=== PATIENT | female | born 1980 | race Caucasian/White ===

== ENCOUNTER 2016-04-18 13:19 | Inpatient (IN) | payer OTHER ==
[2016-04-18 14:51] VITALS: BMI 24.6
--- NOTE | 2016-04-18 16:23 | HP ---
CIWA Score - CIWA Score Nausea/Vomitin-Mild Nausea/No Vomiting Muscle Tremors: 5 Anxiety: 4-Mod. Anxious/Guarded Agitation: 4-Moderately Restless Paroxysmal Sweats: 1-Minimal Palms Moist Orientation: 1-Uncertain about Date Tacttile Disturbances: 0-None Auditory Disturbances: 0-None Visual Disturbances: 0-None Headache: 0-None Present CIWA-Ar Total Score: 16 Admission ROS S - HPI Chief Complaint: withdrawal sx Allergies/Adverse Reactions: Allergies Allergy/AdvReac Type Severity Reaction Status Date / Time No Known Allergies Allergy Verified 04/18/16 16:17 History of Present Illness: 35 years old female with long history of alcohol nicotine and recent xanax dependence, denies medical issue, has anxiety and depression is admitted to detox Exam Limitations: No Limitations - Ebola screening Have you traveled outside of the country in the last 21 days: No Have you had contact with anyone from an Ebola affected area: No Have you been sick,other than usual withdrawal symptoms: No Do you have a fever: No - Review of Systems Constitutional: Chills, Changes in sleep, Weight Stable EENT: reports: No Symptoms Reported Respiratory: reports: Productive cough (greenish) Cardiac: reports: Palpitations GI: reports: Nausea, Poor Fluid Intake, Abdominal cramping : reports: No Symptoms Reported Musculoskeletal: reports: Back Pain Integumentary: reports: Erythema (rosacea of face) Neuro: reports: Seizure (xanax alcohol withdrawal related 12/2015), Tremors Endocrine: reports: No Symptoms Reported Hematology: reports: No Symptoms Reported Psychiatric: reports: Judgement Intact, Agitated, Depressed Other Systems: Reviewed and Negative Patient History - Patient Medical History Hx Anemia: No Hx Asthma: No Hx Chronic Obstructive Pulmonary Disease (COPD): No Hx Cancer: No Hx Cardiac Disorders: No Hx Congestive Heart Failure: No Hx Hypertension: No Hx Hypercholesterolemia: No Hx Pacemaker: No HX Cerebrovascular Accident: No Hx Seizures: Yes (2015) Hx Dementia: No Hx Diabetes: No Hx Gastrointestinal Disorders: No Hx Liver Disease: No Hx Genitourinary Disorders: No Hx Sexually Transmitted Disorders: No Hx Renal Disease (ESRD): No Hx Thyroid Disease: No Hx Human Immunodeficiency Virus (HIV): No Hx Hepatitis C: No Hx Depression: Yes Hx Suicide Attempt: No Hx Bipolar Disorder: No Hx Schizophrenia: No - Patient Surgical History Past Surgical History: Yes Hx Neurologic Surgery: No Hx Cataract Extraction: No Hx Cardiac Surgery: No Hx Lung Surgery: No Hx Breast Surgery: No Hx Breast Biopsy: No Hx Abdominal Surgery: No Hx Appendectomy: No Hx Cholecystectomy: No Hx Genitourinary Surgery: No Hx Section: Yes Hx Orthopedic Surgery: No Hx Hysterectomy: No Anesthesia Reaction: No - PPD History Previous Implant?: Yes Documented Results: Negative w/o proof Implanted On Prior [facility] Admission?: No PPD to be Administered?: Yes - Reproductive History Patient is a Female of Child Bearing Age (11 -55 yrs old): Yes Last Menstrual Period: 04/05/16 Patient : No - Smoking Cessation Smoking history: Current every day smoker Have you smoked in the past 12 months: Yes Aproximately how many cigarettes per day: 12 Cigars Per Day: 0 Hx Chewing Tobacco Use: No Initiated information on smoking cessation: Yes 'Breaking Loose' booklet given: 04/18/16 - Substance & Tx. History Hx Alcohol Use: Yes Hx Substance Use: Yes Substance Use Type: Alcohol, Tranquilizers Hx Substance Use Treatment: Yes - Substances Abused Alcohol Route: Oral Frequency: Daily Amount used: 1-2 PINTS VODKA Age of first use: 11 Date of Last Use: 04/18/16 Alprazolam (Xanax) Route: Oral Frequency: Daily Amount used: 4-10MG Age of first use: 35 Date of Last Use: 04/18/16 Family Disease History - Family Disease History Family Disease History: Heart Disease: Father, [place]: Grandparent Admission Physical Exam BHS - Vital Signs Vital Signs: Vital Signs - 24 hr 04/18/16 14:48 Temperature 97.5 F L Pulse Rate 108 H Respiratory 20 Rate Blood Pressure 116/70 - Physical General Appearance: Yes: Appropriately Dressed, Mild Distress, Alcohol on Breath , Thin, Tremorous, Irritable, Sweating, Anxious HEENTM: Yes: Hearing grossly Normal, Normal ENT Inspection, Normocephalic, Normal Voice Respiratory: Yes: Chest Non-Tender, Lungs Clear, Normal Breath Sounds, No Respiratory Distress, No Accessory Muscle Use, Other (history of fracture left lower ribs) Neck: Yes: Supple, Trachea in good position Breast: Yes: Breasts Symetrical Cardiology: Yes: Regular Rhythm, S1, S2, Tachycardia Abdominal: Yes: Non Tender, Soft Genitourinary: Yes: Within Normal Limits Back: Yes: Normal Inspection Musculoskeletal: Yes: full range of Motion, Gait Steady, Back pain Extremities: Yes: Normal Inspection, Normal Range of Motion, Non-Tender, Tremors Neurological: Yes: Alert, Motor Strength 5/5, Normal Response, Depressed Affect Integumentary: Yes: Warm, Erythema (rosacea face), Clammy Lymphatic: Yes: Within Normal Limits - Diagnostic (1) Alcohol dependence with uncomplicated withdrawal Current Visit: Yes Status: Acute (2) Sedative, hypnotic or anxiolytic dependence with withdrawal, uncomplicated Current Visit: Yes Status: Acute (3) Rosacea, acne Current Visit: Yes Status: Acute (4) Nicotine dependence Current Visit: Yes Status: Acute Qualifiers: Nicotine product type: cigarettes Substance use status: in withdrawal Qualified Code(s): F17.213 - Nicotine dependence, cigarettes, with withdrawal (5) Anxiety and depression Current Visit: Yes Status: Suspected (6) Alcohol related seizure Current Visit: Yes Status: Chronic Cleared for Admission [facility] - Detox or Rehab [facility] Level of Care: Medically Managed Detox Regimen/Protocol: Librium [facility] Breath Alcohol Content Breath Alcohol Content: 0.125 Vital Signs - Vital Signs Vital Signs Refused: No Temperature: 97.5 F Temperature Source: Oral Pulse Rate: 108 Respiratory Rate: 20 Blood Pressure: 116/70 BP Location: Left Arm Blood Pressure Position: Sitting - Height Height: 5 ft 5 in - Weight Weight: 148 lb Weight Measurement Method: Standing Scale Body Mass Index (BMI): 24.6 - Bowel Function Bowel Movement: Yes Urine Pregancy Test - Result Urine Test Results: Negative- NO Line Present Urine Drug Screen - Control Is Test Valid: Yes - Results Drug Screen Negative: No Urine Drug Screen Results: BZO-Benzodiazepines
[2016-04-18] MEDS ORDERED: IBUPROFEN 400 MG TABLET (FP) PO PRN (16:46)
[2016-04-18] MEDS ORDERED: MAGNESIUM HYDROX 2400MG/30ML ORAL SUSPENSION 30 ML CUP PO PRN (16:46)
[2016-04-18] MEDS ORDERED: LOPERAMIDE HCL 2 MG CAPSULE PO PRN (16:46)
[2016-04-18] MEDS ORDERED: guaiFENesin/D-METHORPHAN HB 10 ML UNIT-DOSE CUPS PO PRN (16:46)
[2016-04-18] MEDS ORDERED: MAGNESIUM CITRATE 300 ML BOTTLE PO PRN (16:46)
[2016-04-18] MEDS ORDERED: MAG HYDROX/AL HYDROX/SIMETH 30 ML UNIT-DOSE CUP PO PRN (16:46)
[2016-04-18] MEDS ORDERED: MENTHOL/PHENOL 1 EACH UD MM PRN (16:46)
[2016-04-18] MEDS ORDERED: P-EPHED 60MG/TRIPROLIDI 2.5MG TABLET PO PRN (16:46)
[2016-04-18] MEDS ORDERED: diphenhydrAMINE HCL 50 MG CAPSULE PO PRN (16:46)
[2016-04-18] MEDS: chlordiazePOXIDE HCL 25 MG CAPSULE PO PRN (19:17)
[2016-04-18] MEDS: ACETAMINOPHEN 325 MG TABLET (FP) PO PRN (22:20)
[2016-04-18] MEDS: chlordiazePOXIDE HCL 25 MG CAPSULE PO SCH (22:21)
[2016-04-18] MEDS: THIAMINE HCL 100 MG TABLET (FP) PO SCH (22:21)
[2016-04-18] MEDS: GABAPENTIN 100 MG CAPSULE (FP) PO SCH (22:21)
[2016-04-18] MEDS: SPIRONOLACTONE 25 MG TABLET (FP) PO SCH (22:21)
[2016-04-18] MEDS: NICOTINE POLACRILEX 2 MG GUM BC PRN (23:16)
[2016-04-19 00:22] LABS: URINE APPEARANCE CLEAR; URINE BILIRUBIN NEGATIVE (NEGATIVE); URINE BLOOD NEGATIVE (NEGATIVE); URINE COLOR STRAW; URINE GLUCOSE (UA) NEGATIVE (NEGATIVE); URINE KETONE NEGATIVE (NEGATIVE); URINE LEUK ESTERASE NEGATIVE (NEGATIVE); URINE NITRITE NEGATIVE (NEGATIVE); URINE PROTEIN NEGATIVE (NEGATIVE); URINE UROBILINOGEN NEGATIVE E.U./dl (0.2-1.0)
[2016-04-19] MEDS: chlordiazePOXIDE HCL 25 MG CAPSULE PO SCH ×4 (05:54→22:30)
[2016-04-19] MEDS: NICOTINE POLACRILEX 2 MG GUM BC PRN ×4 (05:58→23:05)
[2016-04-19] MEDS ORDERED: [UNRECOGNIZED DRUG - OTHER] TP SCH (10:00)
[2016-04-19] MEDS ORDERED: SULFACETAMIDE SODIUM TP SCH (10:00)
[2016-04-19 10:19] LABS: ALBUMIN 3.5 g/dl (3.4-5.0); ALK PHOS 45 U/L (45-117); ANION GAP 8 (8-16); CALCIUM 8.4 mg/dL (8.5-10.1); CO2 28 mmol/L (21-32); CREATININE 0.7 mg/dL (0.55-1.02); GLUCOSE,RANDOM 71 mg/dL (74-106); SGOT/AST 22 U/L (15-37); SGPT/ALT 23 U/L (12-78); TOT PROT 6.4 g/dl (6.4-8.2)
[2016-04-19 10:23] LABS: MCH 29.1 pg (25.7-33.7); MCHC 33.3 g/dl (32.0-36.0); MEAN CELL VOLUME 87.5 fl (80-96); MEAN PLT VOLUME 9.7 fl (7.5-11.1); PLATELET COUNT 153 K/MM3 (134-434); RDW 15.5 % (11.6-15.6); WHITE BLOOD COUNT 5.5 K/mm3 (4.0-10.0)
[2016-04-19] MEDS: CICLOPIROX OLAMINE TP SCH (10:37)
[2016-04-19] MEDS: PRENATAL VITAMINS W/ FOLIC ACID TABLET (FP) PO SCH (10:37)
[2016-04-19] MEDS: SPIRONOLACTONE 25 MG TABLET (FP) PO SCH ×2 (10:38→22:30)
[2016-04-19] MEDS: GABAPENTIN 100 MG CAPSULE (FP) PO SCH ×2 (10:38→22:30)
[2016-04-19] MEDS: NICOTINE 14 MG/24 HOURS TOPICAL PATCH TD SCH (10:40)
[2016-04-19] MEDS: MINERAL OIL/PETROLAT/WATER TOPICAL CREAM 113 GM JAR TP SCH (10:41)
--- NOTE | 2016-04-19 11:12 | EKG ---
Test Reason : Blood Pressure : / mmHG Vent. Rate : 092 BPM Atrial Rate : 092 BPM P-R Int : 160 ms QRS Dur : 084 ms QT Int : 388 ms P-R-T Axes : 043 045 021 degrees QTc Int : 479 ms NORMAL SINUS RHYTHM NONSPECIFIC ST ABNORMALITY ABNORMAL ECG NO PREVIOUS ECGS AVAILABLE Confirmed by PAYAM PASCUAL MD ([id number]) on 04/19/2016 11:12:05 AM Referred By: Confirmed By:PAYAM PASCUAL MD
[2016-04-19] MEDS ORDERED: COLLOIDAL OATMEAL 1 BAR EACH TP PRN (11:21)
[2016-04-19 11:59] LABS: HIV 1 & 2 AB NEGATIVE; HIV 1 AGp24 NEGATIVE
[2016-04-19] MEDS: chlordiazePOXIDE HCL 25 MG CAPSULE PO PRN ×2 (12:59→19:05)
--- NOTE | 2016-04-19 13:32 | PN ---
S CIWA - CIWA Score Nausea/Vomitin-No Nausea/No Vomiting Muscle Tremors: 4-Moderate,w/Arms Extend Anxiety: 3 Agitation: 3 Paroxysmal Sweats: 3 Orientation: 0-Oriented Tacttile Disturbances: 2-Mild Itch/Numbness/Burn Auditory Disturbances: 0-None Visual Disturbances: 0-None Headache: 3-Moderate CIWA-Ar Total Score: 18 BHS Progress Note (SOAP) Subjective: Sweating, chills, H/A, Tremors, Diarrhea. Objective: PT. A & O X 3, OBSERVED AMBULATING ON UNIT. 04/19/16 13:32 Vital Signs Temperature 98.2 F 04/19/16 10:34 Pulse Rate 88 04/19/16 10:34 Respiratory Rate 16 04/19/16 10:34 Blood Pressure 109/70 04/19/16 10:34 O2 Sat by Pulse Oximetry (%) Laboratory Last Values WBC 5.5 K/mm3 (4.0-10.0) 04/19/16 07:00 RBC 3.96 M/mm3 (3.60-5.2) 04/19/16 07:00 Hgb 11.5 GM/dL (10.7-15.3) 04/19/16 07:00 Hct 34.6 % (32.4-45.2) 04/19/16 07:00 MCV 87.5 fl (80-96) 04/19/16 07:00 MCHC 33.3 g/dl (32.0-36.0) 04/19/16 07:00 RDW 15.5 % (11.6-15.6) 04/19/16 07:00 Plt Count 153 K/MM3 (134-434) 04/19/16 07:00 MPV 9.7 fl (7.5-11.1) 04/19/16 07:00 Sodium 138 mmol/L (136-145) 04/19/16 07:00 Potassium 4.4 mmol/L (3.5-5.1) 04/19/16 07:00 Chloride 102 mmol/L (98-107) 04/19/16 07:00 Carbon Dioxide 28 mmol/L (21-32) 04/19/16 07:00 Anion Gap 8 (8-16) 04/19/16 07:00 BUN 13 mg/dL (7-18) 04/19/16 07:00 Creatinine 0.7 mg/dL (0.55-1.02) 04/19/16 07:00 Creat Clearance w eGFR > 60 (>60) 04/19/16 07:00 Random Glucose 71 mg/dL (74-106) L 04/19/16 07:00 Calcium 8.4 mg/dL (8.5-10.1) L 04/19/16 07:00 Total Bilirubin 1.0 mg/dL (0.2-1.0) 04/19/16 07:00 AST 22 U/L (15-37) 04/19/16 07:00 ALT 23 U/L (12-78) 04/19/16 07:00 Alkaline Phosphatase 45 U/L (45-117) 04/19/16 07:00 Total Protein 6.4 g/dl (6.4-8.2) 04/19/16 07:00 Albumin 3.5 g/dl (3.4-5.0) 04/19/16 07:00 Urine Color Straw 04/19/16 00:05 Urine Appearance Clear 04/19/16 00:05 Urine pH 6.0 (5.0-8.0) 04/19/16 00:05 Ur Specific [place] 1.002 (1.001-1.035) 04/19/16 00:05 Urine Protein Negative (NEGATIVE) 04/19/16 00:05 Urine Glucose (UA) Negative (NEGATIVE) 04/19/16 00:05 Urine Ketones Negative (NEGATIVE) 04/19/16 00:05 Urine Blood Negative (NEGATIVE) 04/19/16 00:05 Urine Nitrite Negative (NEGATIVE) 04/19/16 00:05 Urine Bilirubin Negative (NEGATIVE) 04/19/16 00:05 Urine Urobilinogen Negative E.U./dl (0.2-1.0) 04/19/16 00:05 Ur Leukocyte Esterase Negative (NEGATIVE) 04/19/16 00:05 RPR Titer Nonreactive (NONREACTIVE) 04/19/16 07:00 HIV 1&2 Antibody Screen Negative 04/19/16 07:00 HIV P24 Antigen Negative 04/19/16 07:00 LABS NOTED. Assessment: 04/19/16 13:34 WITHDRAWAL SYMPTOMS. Plan: CONTINUE DETOX.
[2016-04-19] MEDS: hydrOXYzine PAMOATE 50 MG CAPSULE (FP) PO PRN ×2 (14:53→19:05)
--- NOTE | 2016-04-19 16:05 | CONSULT ---
[facility] Psychiatric Consult - Data Date of interview: 04/19/16 Admission source: [facility] Identifying data: First admission to [facility] for this 35 y/o female seeking detox treatment on for alcohol and benzodiazepine (xanax) dependence.Patient is single,a mother of one,domiciled,unemployed and supported on Public Assistance. Substance Abuse History: - Smoking Cessation. Smoking history: Current every day smoker. Have you smoked in the past 12 months: Yes. Aproximately how many cigarettes per day: 12. Cigars Per Day: 0. Hx Chewing Tobacco Use: No. Initiated information on smoking cessation: Yes. 'Breaking Loose' booklet given : 04/18/16. - Substance & Tx. History. Hx Alcohol Use: Yes. Hx Substance Use : Yes. Substance Use Type: Alcohol, Tranquilizers. Hx Substance Use Treatment : Yes. - Substances Abused. Alcohol. Route: Oral. Frequency: Daily. Amount used: 1-2 PINTS VODKA. Age of first use: 11. Date of Last Use: . Alprazolam (Xanax). Route: Oral. Frequency: Daily. Amount used: 4- 10MG. Age of first use: 35. Date of Last Use: 04/18/16. Confirmed by the patient. Medical History: History of withdrawal seizures and rosacea. Psychiatric History: No reported history of psychiatric hospitalizations.Diagnosed with CLARISSA and Panic Disorder.Ms Espinal is currently seeing a nurse's practitioner/therapist at a [facility]-affiliated mental health clinic in [facility].Medications consist of lexapro 20 mg/day + gabapentin 100 mg po bid.Patient reports moderate insomnia.No history of suicide attempts. Physical/Sexual Abuse/Trauma History: Patient denies. Additional Comment: Urine Drug Screen Results: BZO-Benzodiazepines.Noted. Mental Status Exam - Mental Status Exam Alert and Oriented to: Time, Place, Person Cognitive Function: Good Patient Appearance: Well Groomed (medium habitus) Mood: Withdrawn, Anxious, Apprehensive Affect: Mood Congruent Patient Behavior: Fatigued, Appropriate, Cooperative Speech Pattern: Clear, Appropriate Voice Loudness: Normal Thought Process: Goal Oriented Thought Disorder: Not Present Hallucinations: Denies Suicidal Ideation: Denies Homicidal Ideation: Denies Insight/Judgement: Poor Sleep: Poorly, Difficulty falling asleep Appetite: Good Muscle strength/Tone: Normal Gait/Station: Normal Psychiatric Findings - Problem List ([place] 1, 2,3) (1) Alcohol dependence with uncomplicated withdrawal Current Visit: Yes Status: Acute (2) Nicotine dependence Current Visit: Yes Status: Acute Qualifiers: Nicotine product type: cigarettes Substance use status: in withdrawal Qualified Code(s): F17.213 - Nicotine dependence, cigarettes, with withdrawal (3) Sedative, hypnotic or anxiolytic dependence with withdrawal, uncomplicated Current Visit: Yes Status: Acute (4) Substance induced mood disorder Current Visit: Yes Status: Acute (5) CLARISSA (generalized anxiety disorder) Current Visit: Yes Status: Chronic Comment: Self-report. (6) Rosacea, acne Current Visit: Yes Status: Chronic (7) Insomnia Current Visit: Yes Status: Acute - Initial Treatment Plan Initial Treatment Plan: Psychoeducation.Detoxification.Medications : lexapro 20 mg po daily + gabapentin 100 mg po bid + zolpidem 10 mg po hs.Side effects/ benefits discussed with the patient.She agrees with this plan.Observation.
[2016-04-19] MEDS: ACETAMINOPHEN 325 MG TABLET (FP) PO PRN (17:18)
[2016-04-19] MEDS: THIAMINE HCL 100 MG TABLET (FP) PO SCH (22:30)
[2016-04-19] MEDS: ZOLPIDEM TARTRATE 10 MG TABLET (PARK CARE ONLY) PO PRN (23:05)
[2016-04-20] MEDS: chlordiazePOXIDE HCL 25 MG CAPSULE PO SCH ×3 (05:39→17:59)
[2016-04-20] MEDS: hydrOXYzine PAMOATE 50 MG CAPSULE (FP) PO PRN ×4 (05:41→18:01)
[2016-04-20] MEDS: chlordiazePOXIDE HCL 25 MG CAPSULE PO PRN (08:04)
[2016-04-20] MEDS: SPIRONOLACTONE 25 MG TABLET (FP) PO SCH ×2 (10:38→22:21)
[2016-04-20] MEDS: ESCITALOPRAM OXALATE 20 MG TABLET (FP) PO SCH (10:38)
[2016-04-20] MEDS: PRENATAL VITAMINS W/ FOLIC ACID TABLET (FP) PO SCH (10:38)
[2016-04-20] MEDS: GABAPENTIN 100 MG CAPSULE (FP) PO SCH ×2 (10:38→22:21)
[2016-04-20] MEDS: CICLOPIROX OLAMINE TP SCH (10:39)
[2016-04-20] MEDS: MINERAL OIL/PETROLAT/WATER TOPICAL CREAM 113 GM JAR TP SCH (10:40)
[2016-04-20] MEDS: NICOTINE 14 MG/24 HOURS TOPICAL PATCH TD SCH (11:39)
[2016-04-20] MEDS: NICOTINE POLACRILEX 2 MG GUM BC PRN (11:45)
--- NOTE | 2016-04-20 12:36 | PN ---
[facility] CIWA - CIWA Score Nausea/Vomitin Muscle Tremors: 3 Anxiety: 3 Agitation: 2 Paroxysmal Sweats: 1-Minimal Palms Moist Orientation: 0-Oriented Tacttile Disturbances: 1-Very Mild Itch/Numbness Auditory Disturbances: 1-Very Mild Visual Disturbances: 1-Very Mild Sensitivity Headache: 2-Mild CIWA-Ar Total Score: 17 BHS Progress Note (SOAP) Subjective: ALERT,IRRITABLE,ANXIOUS,INTERRUPTED SLEEP,TREMOR,ACHING PAIN Objective: 04/20/16 12:35 Vital Signs Temperature 97.9 F 04/20/16 10:07 Pulse Rate 91 H 04/20/16 10:07 Respiratory Rate 18 04/20/16 10:07 Blood Pressure 98/67 04/20/16 10:07 O2 Sat by Pulse Oximetry (%) 04/20/16 12:35 Laboratory Last Values WBC 5.5 K/mm3 (4.0-10.0) 04/19/16 07:00 RBC 3.96 M/mm3 (3.60-5.2) 04/19/16 07:00 Hgb 11.5 GM/dL (10.7-15.3) 04/19/16 07:00 Hct 34.6 % (32.4-45.2) 04/19/16 07:00 MCV 87.5 fl (80-96) 04/19/16 07:00 MCHC 33.3 g/dl (32.0-36.0) 04/19/16 07:00 RDW 15.5 % (11.6-15.6) 04/19/16 07:00 Plt Count 153 K/MM3 (134-434) 04/19/16 07:00 MPV 9.7 fl (7.5-11.1) 04/19/16 07:00 Sodium 138 mmol/L (136-145) 04/19/16 07:00 Potassium 4.4 mmol/L (3.5-5.1) 04/19/16 07:00 Chloride 102 mmol/L (98-107) 04/19/16 07:00 Carbon Dioxide 28 mmol/L (21-32) 04/19/16 07:00 Anion Gap 8 (8-16) 04/19/16 07:00 BUN 13 mg/dL (7-18) 04/19/16 07:00 Creatinine 0.7 mg/dL (0.55-1.02) 04/19/16 07:00 Creat Clearance w eGFR > 60 (>60) 04/19/16 07:00 Random Glucose 71 mg/dL (74-106) L 04/19/16 07:00 Calcium 8.4 mg/dL (8.5-10.1) L 04/19/16 07:00 Total Bilirubin 1.0 mg/dL (0.2-1.0) 04/19/16 07:00 AST 22 U/L (15-37) 04/19/16 07:00 ALT 23 U/L (12-78) 04/19/16 07:00 Alkaline Phosphatase 45 U/L (45-117) 04/19/16 07:00 Total Protein 6.4 g/dl (6.4-8.2) 04/19/16 07:00 Albumin 3.5 g/dl (3.4-5.0) 04/19/16 07:00 Urine Color Straw 04/19/16 00:05 Urine Appearance Clear 04/19/16 00:05 Urine pH 6.0 (5.0-8.0) 04/19/16 00:05 Ur Specific [place] 1.002 (1.001-1.035) 04/19/16 00:05 Urine Protein Negative (NEGATIVE) 04/19/16 00:05 Urine Glucose (UA) Negative (NEGATIVE) 04/19/16 00:05 Urine Ketones Negative (NEGATIVE) 04/19/16 00:05 Urine Blood Negative (NEGATIVE) 04/19/16 00:05 Urine Nitrite Negative (NEGATIVE) 04/19/16 00:05 Urine Bilirubin Negative (NEGATIVE) 04/19/16 00:05 Urine Urobilinogen Negative E.U./dl (0.2-1.0) 04/19/16 00:05 Ur Leukocyte Esterase Negative (NEGATIVE) 04/19/16 00:05 RPR Titer Nonreactive (NONREACTIVE) 04/19/16 07:00 HIV 1&2 Antibody Screen Negative 04/19/16 07:00 HIV P24 Antigen Negative 04/19/16 07:00 Assessment: 04/20/16 12:36 WITHDRAWAL SYMPTOM Plan: CONTINUE DETOX
[2016-04-20] MEDS: THIAMINE HCL 100 MG TABLET (FP) PO SCH (22:20)
[2016-04-20] MEDS: chlordiazePOXIDE 5 MG CAPSULE PO SCH (22:20)
[2016-04-20] MEDS: ZOLPIDEM TARTRATE 10 MG TABLET (PARK CARE ONLY) PO PRN (22:21)
[2016-04-21] MEDS: hydrOXYzine PAMOATE 50 MG CAPSULE (FP) PO PRN ×3 (01:08→10:29)
[2016-04-21] MEDS: chlordiazePOXIDE 5 MG CAPSULE PO SCH ×3 (05:51→17:09)
[2016-04-21] MEDS: ESCITALOPRAM OXALATE 20 MG TABLET (FP) PO SCH (10:22)
[2016-04-21] MEDS: SPIRONOLACTONE 25 MG TABLET (FP) PO SCH ×2 (10:22→22:17)
[2016-04-21] MEDS: GABAPENTIN 100 MG CAPSULE (FP) PO SCH ×2 (10:22→22:17)
[2016-04-21] MEDS: NICOTINE 14 MG/24 HOURS TOPICAL PATCH TD SCH (10:22)
[2016-04-21] MEDS: PRENATAL VITAMINS W/ FOLIC ACID TABLET (FP) PO SCH (10:22)
[2016-04-21] MEDS: MINERAL OIL/PETROLAT/WATER TOPICAL CREAM 113 GM JAR TP SCH (10:23)
[2016-04-21] MEDS: CICLOPIROX OLAMINE TP SCH (10:23)
[2016-04-21] MEDS: NICOTINE POLACRILEX 2 MG GUM BC PRN ×3 (10:29→22:17)
--- NOTE | 2016-04-21 12:29 | PN ---
S Progress Note (SOAP) Subjective: alert,irritable,anxious,interrupted sleep Objective: 04/21/16 12:28 Vital Signs Temperature 97.7 F 04/21/16 09:36 Pulse Rate 91 H 04/21/16 09:36 Respiratory Rate 20 04/21/16 09:36 Blood Pressure 114/68 04/21/16 09:36 O2 Sat by Pulse Oximetry (%) Assessment: 04/21/16 12:28 withdrawal symptom Plan: continue detox,discharge in am
[2016-04-21] MEDS: ACETAMINOPHEN 325 MG TABLET (FP) PO PRN (19:11)
[2016-04-21] MEDS: ZOLPIDEM TARTRATE 10 MG TABLET (PARK CARE ONLY) PO PRN (22:17)
[2016-04-21] MEDS: THIAMINE HCL 100 MG TABLET (FP) PO SCH (22:17)
[2016-04-21] MEDS: chlordiazePOXIDE HCL 10 MG CAPSULE PO SCH (22:17)
[2016-04-22] MEDS: chlordiazePOXIDE HCL 10 MG CAPSULE PO SCH (06:05)
[2016-04-22 06:48] VITALS: BP 98/61; PULSE 81; TEMP 98.4
--- NOTE | 2016-04-22 08:51 | PN ---
S Progress Note (SOAP) Subjective: ALERT,NO COMPLAINT Objective: 04/22/16 08:49 Vital Signs Temperature 98.4 F 04/22/16 06:48 Pulse Rate 81 04/22/16 06:48 Respiratory Rate 18 04/22/16 06:48 Blood Pressure 98/61 04/22/16 06:48 O2 Sat by Pulse Oximetry (%) 04/22/16 08:50 Assessment: 04/22/16 08:50 DETOX COMPLETED,NO WITHDRAWAL SYMPTOM Plan: DISCHARGE TODAY,FOLLOW UP WITH AFTER CARE PROGRAM ARRANGEMENT
--- NOTE | 2016-04-22 08:55 | DS ---
[facility] Detox Discharge Summary Admission Date: 04/18/16 Discharge Date: 04/22/16 - History Present History: Alcohol Dependence, Sedative Dependence Additional Comments: FOLLOW UP WITH AFTER [facility] PROGRAM ARRANGEMENT AND PMD FOR MEDICAL PROBLEM Pertinent Past History: SEIZURE ALCOHOL RELATED NICOTINE DEPENDENCE ANXIETY AND DEPRESSION - Physical Exam Results Vital Signs: Vital Signs Temperature 98.4 F 04/22/16 06:48 Pulse Rate 81 04/22/16 06:48 Respiratory Rate 18 04/22/16 06:48 Blood Pressure 98/61 04/22/16 06:48 O2 Sat by Pulse Oximetry (%) Pertinent Admission Physical Exam Findings: WITHDRAWAL SYMPTOM - Treatment Hospital Course: Detox Protocol Followed, Detoxed Safely, Responded well, Discharged Condition Good Patient has Accepted a Rehab Referral to: DECLINED - Medication Discharge Medications: Ambulatory Orders Ciclopirox Olamine [Ciclodan] 90 gm TP DAILY 04/18/16 Escitalopram Oxalate [Lexapro -] 20 mg PO DAILY 04/18/16 Gabapentin [Neurontin -] 100 mg PO Q12H 04/18/16 Hyp AC/Sod Chl/Sod Sul/Sod Aaron [Alevicyn Dermal [place]] 240 ml TP BID 04/18/16 Spironolactone [Aldactone] 25 mg PO BID 04/18/16 Sulfacetamide Sodium [Ovace Plus Wash] 355 ml TP DAILY 04/18/16 Sulfacetamide Sodium/Sulfur [Avar-E Green Emollient Cream] 45 gm TP DAILY Tretinoin/Emol Cmb9/Skin Cln1 [Tretin-X 0.025% Cream Comb Pck] 1 each TP DAILY 04/18/16 Zolpidem Tartrate [Ambien] 10 mg PO HS 04/18/16 Escitalopram Oxalate [Lexapro -] 20 mg PO DAILY #30 tablet 04/19/16 - Diagnosis (1) Alcohol dependence with uncomplicated withdrawal Current Visit: Yes Status: Acute (2) Nicotine dependence Current Visit: Yes Status: Acute Qualifiers: Nicotine product type: cigarettes Substance use status: in withdrawal Qualified Code(s): F17.213 - Nicotine dependence, cigarettes, with withdrawal (3) Sedative, hypnotic or anxiolytic dependence with withdrawal, uncomplicated Current Visit: Yes Status: Acute (4) Alcohol related seizure Current Visit: Yes Status: Chronic (5) CLARISSA (generalized anxiety disorder) Current Visit: Yes Status: Chronic (6) Rosacea, acne Current Visit: Yes Status: Chronic (7) Anxiety and depression Current Visit: Yes Status: Suspected - AMA Did Patient Leave Against Medical Advice: No
[2016-04-22] MEDS: SPIRONOLACTONE 25 MG TABLET (FP) PO SCH (09:43)
[2016-04-22] MEDS: ESCITALOPRAM OXALATE 20 MG TABLET (FP) PO SCH (09:43)
[2016-04-22] MEDS: GABAPENTIN 100 MG CAPSULE (FP) PO SCH (09:43)
[2016-04-22] MEDS: NICOTINE 14 MG/24 HOURS TOPICAL PATCH TD SCH (09:44)
[2016-04-22] MEDS: PRENATAL VITAMINS W/ FOLIC ACID TABLET (FP) PO SCH (09:44)
== END 2016-04-22 10:22 | disposition home or self-care (01) | DRG 775 ==
LOC: YASAS 13:19 → Y6N 17:54
PROVIDERS: ADMIT Internal Medicine Addiction Medicine; ATTEND Internal Medicine Addiction Medicine
PROC: HZ2ZZZZ Detoxification Services for Substance Abuse Treatment (ICD-10-PCS; principal; 2016-04-18)
DX: F13.230 Sedative, hypnotic or anxiolytic dependence with withdrawal, uncomplicated (principal); F10.230 Alcohol dependence with withdrawal, uncomplicated; F17.213 Nicotine dependence, cigarettes, with withdrawal; F41.1 Generalized anxiety disorder; F41.8 Other specified anxiety disorders; G47.00 Insomnia, unspecified; R00.0 Tachycardia, unspecified; L71.9 Rosacea, unspecified; Z86.69 Personal history of other diseases of the nervous system and sense organs
CPT/HCPCS: 36415; 80053; 81003; 85027; 86593; 87389; 93005; 93010

== ENCOUNTER 2016-06-25 16:18 | Inpatient (IN) | payer OTHER ==
[2016-06-25 16:47] VITALS: BMI 22.9
--- NOTE | 2016-06-25 17:04 | HP ---
CIWA Score - CIWA Score Nausea/Vomitin Muscle Tremors: 2 Anxiety: 4-Mod. Anxious/Guarded Agitation: 4-Moderately Restless Paroxysmal Sweats: 2 Orientation: 0-Oriented Tacttile Disturbances: 2-Mild Itch/Numbness/Burn Auditory Disturbances: 0-None Visual Disturbances: 0-None Headache: 0-None Present CIWA-Ar Total Score: 20 Admission ROS BHS - HPI Chief Complaint: I need help to detox from alcohol I can't do it on my own. m Allergies/Adverse Reactions: Allergies Allergy/AdvReac Type Severity Reaction Status Date / Time No Known Allergies Allergy Verified 06/25/16 16:57 History of Present Illness: 36 y/o mf pt with h/o chronic alcoholism seeking detox. Exam Limitations: No Limitations - Ebola screening Have you traveled outside of the country in the last 21 days: No Have you had contact with anyone from an Ebola affected area: No Have you been sick,other than usual withdrawal symptoms: No Do you have a fever: No - Review of Systems Constitutional: Malaise, Night Sweats, Changes in sleep EENT: reports: Nose Congestion Respiratory: reports: No Symptoms reported Cardiac: reports: No Symptoms Reported GI: reports: Nausea, Vomiting, Indigestion : reports: No Symptoms Reported Musculoskeletal: reports: No Symptoms Reported Integumentary: reports: Flushing Neuro: reports: Other (syncope) Endocrine: reports: No Symptoms Reported Hematology: reports: No Symptoms Reported Psychiatric: reports: Agitated, Anxious, Depressed Other Systems: Reviewed and Negative Patient History - Patient Medical History Hx Anemia: No Hx Asthma: No Hx Chronic Obstructive Pulmonary Disease (COPD): No Hx Cancer: No Hx Cardiac Disorders: No Hx Congestive Heart Failure: No Hx Hypertension: No Hx Hypercholesterolemia: No Hx Pacemaker: No HX Cerebrovascular Accident: No Hx Seizures: Yes (2015) Hx Dementia: No Hx Diabetes: No Hx Gastrointestinal Disorders: No Hx Liver Disease: No Hx Genitourinary Disorders: No Hx Sexually Transmitted Disorders: No Hx Renal Disease (ESRD): No Hx Thyroid Disease: No Hx Human Immunodeficiency Virus (HIV): No Hx Hepatitis C: No Hx Depression: Yes (anxiety ) Hx Suicide Attempt: No Hx Bipolar Disorder: No Hx Schizophrenia: No - Patient Surgical History Past Surgical History: Yes Hx Neurologic Surgery: No Hx Cataract Extraction: No Hx Cardiac Surgery: No Hx Lung Surgery: No Hx Breast Surgery: No Hx Breast Biopsy: No Hx Abdominal Surgery: No Hx Appendectomy: No Hx Cholecystectomy: No Hx Genitourinary Surgery: No Hx Section: Yes (x1 ) Hx Orthopedic Surgery: No Hx Hysterectomy: No Anesthesia Reaction: No - PPD History Date: 04/20/16 PPD to be Administered?: No - Reproductive History Last Menstrual Period: 06/24/16 Patient : No - Smoking Cessation Smoking history: Current every day smoker Have you smoked in the past 12 months: Yes Aproximately how many cigarettes per day: 12 Cigars Per Day: 0 Hx Chewing Tobacco Use: No Initiated information on smoking cessation: Yes 'Breaking Loose' booklet given: 06/25/16 - Substance & Tx. History Hx Alcohol Use: Yes Hx Substance Use: Yes Substance Use Type: Alcohol Hx Substance Use Treatment: Yes - Substances Abused Alcohol Amount used: beer 2 six pk /d Age of first use: 10 Date of Last Use: 06/25/16 Family Disease History - Family Disease History Family Disease History: Heart Disease: Father, [place]: Grandparent Admission Physical Exam S - Vital Signs Vital Signs: Vital Signs - 24 hr 06/25/16 16:43 Temperature 96.8 F L Pulse Rate 98 H Respiratory 18 Rate Blood Pressure 125/73 36 y/o f pt aox3 with nausea, vomiting, restless cooperating with exam. - Physical General Appearance: Yes: Appropriately Dressed, Irritable, Anxious HEENTM: Yes: EOMI, Hearing grossly Normal, Normocephalic, Normal Voice, IVONNE, Nasal Congestion Respiratory: Yes: Chest Non-Tender, Lungs Clear, Normal Breath Sounds, No Respiratory Distress Neck: Yes: Supple, Trachea in good position Breast: Yes: Breast Exam Deferred Cardiology: Yes: Regular Rhythm, Regular Rate, S1, S2 Abdominal: Yes: Non Tender, Flat, Soft, Increased Bowel Sounds Genitourinary: Yes: Frequency Musculoskeletal: Yes: Muscle Pain Extremities: Yes: Within Normal Limits Neurological: Yes: vice president payer II-XII NML intact, Fully Oriented, Alert, Motor Strength 5/5, Normal Response, Depressed Affect Integumentary: Yes: Erythema (face), Moist, Rash (mild roseacea) Lymphatic: Yes: Within Normal Limits - Diagnostic (1) Alcohol dependence with uncomplicated withdrawal Current Visit: Yes Status: Chronic (2) Nicotine dependence Current Visit: Yes Status: Chronic Qualifiers: Nicotine product type: cigarettes Substance use status: uncomplicated Qualified Code(s): F17.210 - Nicotine dependence, cigarettes, uncomplicated (3) Alcohol related seizure Current Visit: Yes Status: Chronic (4) Rosacea, acne Current Visit: Yes Status: Chronic (5) Anxiety and depression Current Visit: Yes Status: Chronic Cleared for Admission [facility] - Detox or Rehab [facility] Level of Care: Medically Managed Detox Regimen/Protocol: Librium [facility] Breath Alcohol Content Breath Alcohol Content: 0.163 Urine Pregancy Test - Result Urine Test Results: Negative- NO Line Present Urine Drug Screen - Results Drug Screen Negative: No Urine Drug Screen Results: BZO-Benzodiazepines
[2016-06-25] MEDS ORDERED: P-EPHED 60MG/TRIPROLIDI 2.5MG TABLET PO PRN (17:18)
[2016-06-25] MEDS ORDERED: LOPERAMIDE HCL 2 MG CAPSULE PO PRN (17:18)
[2016-06-25] MEDS ORDERED: MAGNESIUM CITRATE 300 ML BOTTLE PO PRN (17:18)
[2016-06-25] MEDS ORDERED: MAGNESIUM HYDROX 2400MG/30ML ORAL SUSPENSION 30 ML CUP PO PRN (17:18)
[2016-06-25] MEDS ORDERED: MENTHOL/PHENOL 1 EACH UD MM PRN (17:18)
[2016-06-25] MEDS ORDERED: MAG HYDROX/AL HYDROX/SIMETH 30 ML UNIT-DOSE CUP PO PRN (17:18)
[2016-06-25] MEDS ORDERED: IBUPROFEN 400 MG TABLET (FP) PO PRN (17:18)
[2016-06-25] MEDS ORDERED: guaiFENesin/D-METHORPHAN HB 10 ML UNIT-DOSE CUPS PO PRN (17:18)
[2016-06-25] MEDS ORDERED: ONDANSETRON 4 MG TABLET PO ONE (19:53)
[2016-06-25] MEDS ORDERED: TRIMETHOBENZAMIDE HCL 200MG/2ML INJ IM PRN (20:27)
[2016-06-25] MEDS ORDERED: chlordiazePOXIDE HCL 25 MG CAPSULE PO ONE (20:28)
[2016-06-25 22:43] LABS: URINE APPEARANCE CLEAR; URINE BILIRUBIN NEGATIVE (NEGATIVE); URINE COLOR LTYELLOW; URINE GLUCOSE (UA) NEGATIVE (NEGATIVE); URINE KETONE TRACE (NEGATIVE); URINE NITRITE NEGATIVE (NEGATIVE); URINE PROTEIN NEGATIVE (NEGATIVE); URINE UROBILINOGEN NEGATIVE E.U./dl (0.2-1.0)
[2016-06-25 22:45] LABS: URINE BLOOD 2+ (NEGATIVE); URINE LEUK ESTERASE 1+ (NEGATIVE)
[2016-06-25 22:56] LABS: URINE WBC 6 /hpf (3-5)
[2016-06-25] MEDS: GABAPENTIN 100 MG CAPSULE (FP) PO SCH (23:17)
[2016-06-25] MEDS: chlordiazePOXIDE HCL 25 MG CAPSULE PO SCH (23:17)
[2016-06-25] MEDS: THIAMINE HCL 100 MG TABLET (FP) PO SCH (23:17)
[2016-06-26] MEDS: chlordiazePOXIDE HCL 25 MG CAPSULE PO SCH ×4 (05:24→22:12)
--- NOTE | 2016-06-26 08:25 | EKG ---
Test Reason : Blood Pressure : / mmHG Vent. Rate : 079 BPM Atrial Rate : 079 BPM P-R Int : 144 ms QRS Dur : 088 ms QT Int : 412 ms P-R-T Axes : 016 049 032 degrees QTc Int : 472 ms NORMAL SINUS RHYTHM POSSIBLE ANTERIOR INFARCT , AGE UNDETERMINED ABNORMAL ECG WHEN COMPARED WITH ECG OF 18-APR-2016 18:50, NO SIGNIFICANT CHANGE WAS FOUND Confirmed by SHAUNNA KAUR, BILLY ([id number]) on 06/26/2016 8:24:56 AM Referred By: Mario Esqueda Confirmed By:BILLY MAZA MD
[2016-06-26] MEDS: chlordiazePOXIDE HCL 25 MG CAPSULE PO PRN ×3 (08:58→20:23)
[2016-06-26] MEDS ORDERED: ONDANSETRON *ODT* 4 MG TABLET SL PRN (09:54)
[2016-06-26 10:26] LABS: ALBUMIN 4.2 g/dl (3.4-5.0); ANION GAP 14 (8-16); CALCIUM 9.4 mg/dL (8.5-10.1); CO2 28 mmol/L (21-32); GLUCOSE,RANDOM 75 mg/dL (74-106); SGOT/AST 45 U/L (15-37); SGPT/ALT 45 U/L (12-78)
[2016-06-26 10:28] LABS: ALK PHOS 55 U/L (45-117); BILIRUBIN,TOTAL 1.2 mg/dL (0.2-1.0); COCKROFT - GAULT 152.2265; CREATININE 0.5 mg/dL (0.55-1.02)
[2016-06-26] MEDS: GABAPENTIN 100 MG CAPSULE (FP) PO SCH ×2 (10:33→22:12)
[2016-06-26] MEDS: NICOTINE 21 MG/24 HOURS TOPICAL PATCH TD SCH (10:33)
[2016-06-26] MEDS: PRENATAL VITAMINS W/ FOLIC ACID TABLET (FP) PO SCH (10:33)
[2016-06-26 10:53] LABS: MCH 29.1 pg (25.7-33.7); MCHC 32.3 g/dl (32.0-36.0); MEAN CELL VOLUME 90.1 fl (80-96); MEAN PLT VOLUME 10.7 fl (7.5-11.1); PLATELET COUNT 155 K/MM3 (134-434); RDW 15.2 % (11.6-15.6)
--- NOTE | 2016-06-26 11:08 | PN ---
S CIWA - CIWA Score Nausea/Vomitin-Mild Nausea/No Vomiting Muscle Tremors: 4-Moderate,w/Arms Extend Anxiety: 3 Agitation: 4-Moderately Restless Paroxysmal Sweats: 3 Orientation: 0-Oriented Tacttile Disturbances: 0-None Auditory Disturbances: 0-None Visual Disturbances: 0-None Headache: 2-Mild CIWA-Ar Total Score: 17 BHS Progress Note (SOAP) Subjective: shakes sweats irritable agitation headache Objective: 06/26/16 11:07 Vital Signs Temperature 97.2 F L 06/26/16 10:41 Pulse Rate 72 06/26/16 10:41 Respiratory Rate 18 06/26/16 10:41 Blood Pressure 124/100 06/26/16 10:41 O2 Sat by Pulse Oximetry (%) Laboratory Tests 06/25/16 06/26/16 06/26/16 20:00 07:00 07:00 WBC 7.0 RBC 4.69 Hgb 13.7 D Hct 42.3 D MCV 90.1 MCHC 32.3 RDW 15.2 Plt Count 155 MPV 10.7 D Sodium 138 Potassium 4.4 Chloride 96 L Carbon Dioxide 28 Anion Gap 14 BUN 7 D Creatinine 0.5 L D Creat Clearance w eGFR > 60 Random Glucose 75 Calcium 9.4 Total Bilirubin 1.2 H AST 45 H D ALT 45 D Alkaline Phosphatase 55 D Total Protein 8.0 D Albumin 4.2 Urine Color Ltyellow Urine Appearance Clear Urine pH 6.0 Ur Specific [place] 1.008 Urine Protein Negative Urine Glucose (UA) Negative Urine Ketones Trace H Urine Blood 2+ H Urine Nitrite Negative Urine Bilirubin Negative Urine Urobilinogen Negative Ur Leukocyte Esterase 1+ H Urine RBC None Urine WBC 6 Ur Epithelial Cells Rare awake/alert ambulating no acute distress Assessment: 06/26/16 11:08 withdrawal sx Plan: continue detox increase fluids motrin/tylenol prn
[2016-06-26 12:55] LABS: HIV 1 & 2 AB NEGATIVE; HIV 1 AGp24 NEGATIVE
--- NOTE | 2016-06-26 16:14 | CONSULT ---
[facility] Psychiatric Consult - Data Date of interview: 06/26/16 Admission source: [facility] Identifying data: Readmission to [facility] for this 36 y/o female seeking detox treatment on for alcohol and benzodiazepine (xanax) dependence.Patient is single,a mother of one,domiciled,unemployed and supported on Public Assistance. Substance Abuse History: - Smoking Cessation. Smoking history: Current every day smoker. Have you smoked in the past 12 months: Yes. Aproximately how many cigarettes per day: 12. Cigars Per Day: 0. Hx Chewing Tobacco Use: No. Initiated information on smoking cessation: Yes. 'Breaking Loose' booklet given : 06/25/16. - Substance & Tx. History. Hx Alcohol Use: Yes. Hx Substance Use : Yes. Substance Use Type: Alcohol. Hx Substance Use Treatment: Yes. - Substances Abused. Alcohol. Amount used: beer 2 six pk /d. Age of first use: 10. Date of Last Use: 06/25/16. Confirmed by patient. Medical History: History of withdrawal seizures and rosacea. Psychiatric History: Patient denies history of psychiatric hospitalizations.Diagnosed with CLARISSA and Panic Disorder.Ms Espinal is still seeing a nurse's practitioner/therapist at a [facility]-affiliated mental health clinic in [facility].Medications consist of lexapro 20 mg/day + gabapentin 100 mg po bid.Patient reports moderate insomnia.No history of suicide attempts. Physical/Sexual Abuse/Trauma History: Patient denies. Additional Comment: Urine Drug Screen Results: BZO-Benzodiazepines.Noted. Mental Status Exam - Mental Status Exam Alert and Oriented to: Time, Place, Person Cognitive Function: Good Patient Appearance: Well Groomed Mood: Withdrawn, Anxious, Apprehensive Affect: Mood Congruent Patient Behavior: Fatigued, Appropriate, Cooperative Speech Pattern: Clear, Appropriate Voice Loudness: Normal Thought Process: Goal Oriented Thought Disorder: Not Present Hallucinations: Denies Suicidal Ideation: Denies Homicidal Ideation: Denies Sleep: Poorly, Difficulty falling asleep Appetite: Good Muscle strength/Tone: Normal Gait/Station: Normal Psychiatric Findings - Problem List ([place] 1, 2,3) (1) Alcohol dependence with uncomplicated withdrawal Current Visit: Yes Status: Acute (2) Nicotine dependence Current Visit: Yes Status: Acute Qualifiers: Nicotine product type: cigarettes Substance use status: uncomplicated Qualified Code(s): F17.210 - Nicotine dependence, cigarettes, uncomplicated (3) Substance induced mood disorder Current Visit: Yes Status: Acute (4) CLARISSA (generalized anxiety disorder) Current Visit: Yes Status: Chronic Comment: Self-report. (5) Rosacea, acne Current Visit: Yes Status: Chronic (6) Insomnia Current Visit: Yes Status: Acute - Initial Treatment Plan Initial Treatment Plan: Psychoeducation.Detoxification.Medications : lexapro 20 mg po daily + gabapentin 100 mg po bid.Side effects/benefits discussed with patient.She agrees with this careplan.Observation.
[2016-06-26] MEDS ORDERED: COLLOIDAL OATMEAL 1 BAR EACH TP PRN (19:15)
[2016-06-26] MEDS: NICOTINE POLACRILEX 4 MG GUM BC PRN (20:23)
[2016-06-26] MEDS: diphenhydrAMINE HCL 50 MG CAPSULE PO PRN (22:12)
[2016-06-26] MEDS: THIAMINE HCL 100 MG TABLET (FP) PO SCH (22:12)
[2016-06-27] MEDS: chlordiazePOXIDE HCL 25 MG CAPSULE PO SCH ×3 (05:28→17:37)
[2016-06-27] MEDS: GABAPENTIN 100 MG CAPSULE (FP) PO SCH ×2 (10:25→22:08)
[2016-06-27] MEDS: PRENATAL VITAMINS W/ FOLIC ACID TABLET (FP) PO SCH (10:25)
[2016-06-27] MEDS: NICOTINE 21 MG/24 HOURS TOPICAL PATCH TD SCH (10:25)
[2016-06-27] MEDS: ESCITALOPRAM OXALATE 20 MG TABLET (FP) PO SCH (10:25)
[2016-06-27] MEDS: ACETAMINOPHEN 325 MG TABLET (FP) PO PRN ×2 (10:26→17:38)
--- NOTE | 2016-06-27 12:00 | PN ---
[facility] CIWA - CIWA Score Nausea/Vomitin Muscle Tremors: 2 Anxiety: 3 Agitation: 2 Paroxysmal Sweats: 3 Orientation: 0-Oriented Tacttile Disturbances: 2-Mild Itch/Numbness/Burn Auditory Disturbances: 0-None Visual Disturbances: 0-None Headache: 0-None Present CIWA-Ar Total Score: 14 S Progress Note (SOAP) Subjective: sweats, sorebody , Objective: 06/27/16 11:57 Vital Signs Temperature 99.3 F 06/27/16 09:58 Pulse Rate 98 H 06/27/16 09:58 Respiratory Rate 16 06/27/16 09:58 Blood Pressure 96/75 06/27/16 09:58 O2 Sat by Pulse Oximetry (%) Laboratory Tests 06/25/16 06/26/16 06/26/16 20:00 07:00 07:00 WBC 7.0 RBC 4.69 Hgb 13.7 D Hct 42.3 D MCV 90.1 MCHC 32.3 RDW 15.2 Plt Count 155 MPV 10.7 D Sodium Potassium Chloride Carbon Dioxide Anion Gap BUN Creatinine Creat Clearance w eGFR Random Glucose Calcium Total Bilirubin AST ALT Alkaline Phosphatase Total Protein Albumin Urine Color Ltyellow Urine Appearance Clear Urine pH 6.0 Ur Specific [place] 1.008 Urine Protein Negative Urine Glucose (UA) Negative Urine Ketones Trace H Urine Blood 2+ H Urine Nitrite Negative Urine Bilirubin Negative Urine Urobilinogen Negative Ur Leukocyte Esterase 1+ H Urine RBC None Urine WBC 6 Ur Epithelial Cells Rare RPR Titer HIV 1&2 Antibody Screen Negative HIV P24 Antigen Negative 06/26/16 06/26/16 07:00 07:00 WBC RBC Hgb Hct MCV MCHC RDW Plt Count MPV Sodium 138 Potassium 4.4 Chloride 96 L Carbon Dioxide 28 Anion Gap 14 BUN 7 D Creatinine 0.5 L D Creat Clearance w eGFR > 60 Random Glucose 75 Calcium 9.4 Total Bilirubin 1.2 H AST 45 H D ALT 45 D Alkaline Phosphatase 55 D Total Protein 8.0 D Albumin 4.2 Urine Color Urine Appearance Urine pH Ur Specific [place] Urine Protein Urine Glucose (UA) Urine Ketones Urine Blood Urine Nitrite Urine Bilirubin Urine Urobilinogen Ur Leukocyte Esterase Urine RBC Urine WBC Ur Epithelial Cells RPR Titer Nonreactive HIV 1&2 Antibody Screen HIV P24 Antigen pt aox3 in nad ambulating Assessment: 06/27/16 11:59 withdrawal sx's Plan: cont. dettox increase fluids razor
[2016-06-27] MEDS: chlordiazePOXIDE HCL 25 MG CAPSULE PO PRN (13:30)
[2016-06-27] MEDS: THIAMINE HCL 100 MG TABLET (FP) PO SCH (22:08)
[2016-06-27] MEDS: diphenhydrAMINE HCL 50 MG CAPSULE PO PRN (22:09)
[2016-06-27] MEDS: chlordiazePOXIDE 5 MG CAPSULE PO SCH (22:09)
[2016-06-28] MEDS: chlordiazePOXIDE 5 MG CAPSULE PO SCH ×3 (06:01→17:09)
[2016-06-28] MEDS: GABAPENTIN 100 MG CAPSULE (FP) PO SCH ×2 (10:34→22:49)
[2016-06-28] MEDS: ESCITALOPRAM OXALATE 20 MG TABLET (FP) PO SCH (10:34)
[2016-06-28] MEDS: NICOTINE 21 MG/24 HOURS TOPICAL PATCH TD SCH (10:34)
[2016-06-28] MEDS: PRENATAL VITAMINS W/ FOLIC ACID TABLET (FP) PO SCH (10:34)
[2016-06-28] MEDS: NICOTINE POLACRILEX 4 MG GUM BC PRN ×2 (10:35→19:29)
--- NOTE | 2016-06-28 11:49 | PN ---
[facility] Progress Note (SOAP) Subjective: anxious Objective: 06/28/16 11:48 Vital Signs Temperature 97.0 F L 06/28/16 10:57 Pulse Rate 93 H 06/28/16 10:57 Respiratory Rate 18 06/28/16 10:57 Blood Pressure 105/68 06/28/16 10:57 O2 Sat by Pulse Oximetry (%) awake/alert ambulating no acute distress Assessment: 06/28/16 11:48 withdrawal sx Plan: continue detox increase fluids d/c in am
[2016-06-28] MEDS: ACETAMINOPHEN 325 MG TABLET (FP) PO PRN ×2 (11:53→22:52)
[2016-06-28] MEDS: hydrOXYzine PAMOATE 25 MG CAPSULE (FP) PO PRN ×2 (13:11→19:29)
[2016-06-28] MEDS: chlordiazePOXIDE HCL 25 MG CAPSULE PO PRN ×2 (13:11→19:29)
--- NOTE | 2016-06-28 16:32 | PN ---
[facility] Progress Note Note: Psychiatry Attending's note : Asked for re-consult.Reason not offered. Met with the patient in the presence of female staff,Ms Snyder. Ms Espinal indicates that she wanted to know if scripts were sent to pharmacy. Wants more information about mood disorders (course,prognosis,treatments). Patient is otherwise doing well :adequate grooming,good conversation, appropriate behavior. Stable mental status.Euthymic mood,bright affect.Intact cognition.No perceptual disturbances. Patient denies suicidal/homicidal ideation,intent or plan.She is ambulatory.Steady gait. No somatic complaints.Uneventful hospital course.Patient is at her baseline.Receptive to teaching. Intervention : Psychoeducation provided :medications reviewed;course of illness discussed. Emphasis placed upon the importance of sobriety and lifestyle change. Encouraged to maintain a therapeutic alliance with her outpatient providers. Vocational activities are strongly recommended to the patient. Patient is in agreement with the contents of this session.
[2016-06-28] MEDS: THIAMINE HCL 100 MG TABLET (FP) PO SCH (22:49)
[2016-06-28] MEDS: diphenhydrAMINE HCL 50 MG CAPSULE PO PRN (22:49)
[2016-06-28] MEDS: chlordiazePOXIDE HCL 10 MG CAPSULE PO SCH (22:49)
[2016-06-29] MEDS: chlordiazePOXIDE HCL 10 MG CAPSULE PO SCH (05:42)
[2016-06-29] MEDS: ESCITALOPRAM OXALATE 20 MG TABLET (FP) PO SCH (09:41)
[2016-06-29] MEDS: GABAPENTIN 100 MG CAPSULE (FP) PO SCH (09:41)
[2016-06-29] MEDS: PRENATAL VITAMINS W/ FOLIC ACID TABLET (FP) PO SCH (09:41)
[2016-06-29] MEDS: NICOTINE 21 MG/24 HOURS TOPICAL PATCH TD SCH (09:42)
[2016-06-29] MEDS: ACETAMINOPHEN 325 MG TABLET (FP) PO PRN (09:42)
--- NOTE | 2016-06-29 09:50 | PN ---
S Progress Note (SOAP) Subjective: ALERT,NO COMPLAINT Objective: 06/29/16 09:48 Vital Signs Temperature 97.7 F 06/29/16 06:49 Pulse Rate 74 06/29/16 06:49 Respiratory Rate 18 06/29/16 06:49 Blood Pressure 93/54 06/29/16 06:49 O2 Sat by Pulse Oximetry (%) Assessment: 06/29/16 09:49 DETOX COMPLETED,NO WITHDRAWAL SYMPTOM Plan: DISCHARGE TODAY,FOLLOW UP WITH AFTER CARE PROGRAM ARRANGEMENT
--- NOTE | 2016-06-29 09:56 | DS ---
[facility] Detox Discharge Summary Admission Date: 06/25/16 Discharge Date: 06/29/16 - History Present History: Alcohol Dependence Pertinent Past History: ANXIETY DISORDER - Physical Exam Results Vital Signs: Vital Signs Temperature 97.7 F 06/29/16 06:49 Pulse Rate 74 06/29/16 06:49 Respiratory Rate 18 06/29/16 06:49 Blood Pressure 93/54 06/29/16 06:49 O2 Sat by Pulse Oximetry (%) - Treatment Hospital Course: Detox Protocol Followed, Detoxed Safely, Responded well, Discharged Condition Good - Medication Discharge Medications: Ambulatory Orders Ciclopirox Olamine [Ciclodan] 90 gm TP DAILY 04/18/16 Gabapentin [Neurontin -] 100 mg PO Q12H 04/18/16 Hyp AC/Sod Chl/Sod Sul/Sod Aaron [Alevicyn Dermal Victoria] 240 ml TP BID 04/18/16 Sulfacetamide Sodium [Ovace Plus Wash] 355 ml TP DAILY 04/18/16 Sulfacetamide Sodium/Sulfur [Avar-E Green Emollient Cream] 45 gm TP DAILY Tretinoin/Emol Cmb9/Skin Cln1 [Tretin-X 0.025% Cream Comb Pck] 1 each TP DAILY 04/18/16 Escitalopram Oxalate [Lexapro -] 20 mg PO DAILY #30 tablet 04/19/16 Escitalopram Oxalate [Lexapro -] 20 mg PO DAILY #30 tablet 06/26/16 - Diagnosis (1) Alcohol dependence with uncomplicated withdrawal Current Visit: Yes Status: Acute (2) Nicotine dependence Current Visit: Yes Status: Acute Qualifiers: Nicotine product type: cigarettes Substance use status: uncomplicated Qualified Code(s): F17.210 - Nicotine dependence, cigarettes, uncomplicated (3) Sedative, hypnotic or anxiolytic dependence with withdrawal, uncomplicated Current Visit: Yes Status: Acute (4) Alcohol related seizure Current Visit: Yes Status: Chronic (5) CLARISSA (generalized anxiety disorder) Current Visit: Yes Status: Chronic (6) Rosacea, acne Current Visit: Yes Status: Chronic - AMA Did Patient Leave Against Medical Advice: No
[2016-06-29 11:08] VITALS: BP 117/74; PULSE 96; TEMP 98.2
== END 2016-06-29 10:30 | disposition home or self-care (01) | DRG 775 ==
LOC: YASAS 16:18 → Y6N 18:18
PROVIDERS: ADMIT Internal Medicine Addiction Medicine; ATTEND Internal Medicine Addiction Medicine
PROC: HZ2ZZZZ Detoxification Services for Substance Abuse Treatment (ICD-10-PCS; principal; 2016-06-29)
DX: F13.230 Sedative, hypnotic or anxiolytic dependence with withdrawal, uncomplicated (principal); F10.230 Alcohol dependence with withdrawal, uncomplicated; F17.210 Nicotine dependence, cigarettes, uncomplicated; F41.1 Generalized anxiety disorder; F19.24 Other psychoactive substance dependence with psychoactive substance-induced mood disorder; G40.509 Epileptic seizures related to external causes, not intractable, without status epilepticus; G47.00 Insomnia, unspecified
CPT/HCPCS: 36415; 80053; 81003; 81015; 85027; 86593; 87389; 93005; 93010